=== PATIENT | male | born 1995 | race Caucasian/White ===

== ENCOUNTER 2022-02-05 18:23 | Emergency (ER) | payer OTHER, BC ==
[2022-02-05] MEDS ORDERED: Ketorolac Tromethamine 30 MG/ML VIAL ONE (18:53)
== END 2022-02-05 19:35 | disposition home or self-care (01) ==
LOC: ERS 18:23
DX: M25.512 Pain in left shoulder (principal); V86.55XA Driver of 3- or 4- wheeled all-terrain vehicle (ATV) injured in nontraffic accident, initial encounter; Y92.410 Unspecified street and highway as the place of occurrence of the external cause
CPT/HCPCS: 96372; J1885